=== PATIENT | male | born 1940 | race Caucasian/White ===

== ENCOUNTER 2019-02-23 07:29 | Inpatient (IN) ==
[2019-02-17 19:29] LABS: Appearance,Urine CLEAR; Bacteria,Urine 0 /hpf (0); Bilirubin,Urine NEG (NEG); Color,Urine YELLOW; Culture Indicated,Urine YES; Glucose,Urine (UA) NEGATIVE (NEG); Ketones,Urine NEG (NEG); Leukocyte Esterase,Urine 500 /uL (NEG); Nitrate,Urine NEG (NEG); Protein,Urine NEG (NEG); Specific Gravity,Urine 1.016 (1.000-1.035); Urine Blood 0.03 mg/dL (<0.03); Urine RBC 5 /hpf (0-1); Urine Squamous Epithelial Cell 1 /hpf (0-4); Urine WBC 52 /hpf (0-4); Urobilinogen,Urine NEG (NEG)
[2019-02-17 20:59] LABS: Blood Urea Nitrogen 32 mg/dl (8-23); Calcium 9.3 mg/dl (8.6-10.4); Carbon Dioxide 31 mmol/L (22-30); Chloride 101 mmol/L (96-108); Glomerular Filtration Rate 38; Glucose 130 mg/dL (70-105)
[2019-02-17 21:11] LABS: Basophils # (Auto) 0.1 K/mcL (0.0-0.3); Basophils % (Auto) 0.5 % (0.0-2.0); Eosinophils # (Auto) 0.5 K/mcL (0.0-0.7); Eosinophils % (Auto) 5.2 % (0.0-7.0); Granulocytes % (Auto) 54.1 % (38.0-78.0); Hematocrit 42.1 % (41.0-55.0); Hemoglobin 13.6 g/dL (13.5-16.5); Lymphocytes # (Auto) 2.9 K/mcL (1.5-4.8); Lymphocytes % (Auto) 30.1 % (15.5-49.0); Mean Cell Volume 99.4 fL (80.0-100.0); Mean Corpuscular HGB Conc 32.2 g/dL (31.0-36.0); Mean Platelet Volume 7.8 fL (7.4-10.4); Monocytes % (Auto) 10.1 % (1.0-12.0); Platelet Count 232 K/mcL (140-440); RBC 4.24 M/mcL (4.50-5.90); Red Cell Distribution Width 14.2 % (11.5-14.5); WBC 9.7 K/mcL (4.5-11.0)
[2019-02-20 17:33] LABS: Hemoglobin A1C 6.9 % HGB (4.0-6.0)
[~2019-02-23 07:29] MED LIST: 0.9 % SODIUM CHLORIDE 9 ML, KETOROLAC 30 MG, ROPIVACAINE HCL/PF 49.5 ML, EPINEPHrine 0.... IJ SCH; CELECOXIB 200 MG CAPSULE PO SCH; IPRATROPIUM/ALBUTEROL 3 ML AMPUL.NEB NEB PRN; PREGABALIN 75 MG CAPSULE PO SCH; SCOPOLAMINE 1 PATCH PATCH TOPICAL PRN; ceFAZolin 2 GM in DEXTROSE 5% IN WATER 50 ML IV SCH; oxyCODONE 10 MG TAB.ER.12H PO SCH
[2019-02-23] MEDS ORDERED: CIPROFLOXACIN 400 MG/200 ML BAG IV ONE (09:48)
[2019-02-23] MEDS ORDERED: ONDANSETRON 4 MG/2 ML VIAL IV ONE (10:36)
[2019-02-23] MEDS ORDERED: fentaNYL 250 MCG/5 ML VIAL IV ONE (10:36)
[2019-02-23] MEDS ORDERED: LIDOCAINE HCL/PF 100 MG/5 ML SYRINGE IV ONE (10:36)
[2019-02-23] MEDS ORDERED: ROPIVACAINE HCL/PF 20 ML VIAL IJ ONE (10:36)
[2019-02-23] MEDS ORDERED: PROPOFOL 200 MG/20 ML VIAL IV ONE (10:36)
[2019-02-23] MEDS ORDERED: GLYCOPYRROLATE 0.2 MG/ML VIAL IV ONE (10:36)
[2019-02-23] MEDS ORDERED: PHENYLEPHRINE 10 MG/ML VIAL IV ONE (10:36)
[2019-02-23] MEDS ORDERED: DEXAMETHASONE 10 MG/ML VIAL IV ONE (10:36)
[2019-02-23] MEDS ORDERED: FLUMAZENIL 0.1 MG/ML ML IV PRN (11:57)
[2019-02-23] MEDS ORDERED: diphenhydrAMINE 50 MG/ML VIAL IV PRN (11:57)
[2019-02-23] MEDS ORDERED: HYDROmorphone 2 MG/ML VIAL IV PRN (11:57)
[2019-02-23] MEDS ORDERED: ATROPINE SULFATE 0.4 MG/ML VIAL IV PRN (11:57)
[2019-02-23] MEDS ORDERED: METHOCARBAMOL 1,000 MG/10 ML VIAL IV PRN ×2 (11:57→13:51)
[2019-02-23] MEDS ORDERED: IPRATROPIUM/ALBUTEROL 3 ML AMPUL.NEB NEB PRN (11:57)
[2019-02-23] MEDS ORDERED: METOPROLOL TARTRATE 5 MG/5 ML VIAL IV PRN (11:57)
[2019-02-23] MEDS ORDERED: ACETAMINOPHEN 1,000 MG/100 ML BOTTLE IV ONE (11:57)
[2019-02-23] MEDS ORDERED: NALOXONE HCL 0.4 MG/ML VIAL IV PRN (11:57)
[2019-02-23] MEDS ORDERED: ONDANSETRON 4 MG/2 ML VIAL IV PRN ×2 (11:57→13:35)
[2019-02-23] MEDS ORDERED: PROMETHAZINE 25 MG/ML VIAL IV PRN (11:57)
[2019-02-23] MEDS ORDERED: ePHEDrine 50 MG/ML AMPUL IV PRN (11:57)
[2019-02-23] MEDS ORDERED: LACTATED RINGERS 1,000 ML IV SCH (12:00)
[2019-02-23] MEDS ORDERED: VANCOMYCIN 1 GM VIAL TOPICAL SCH (13:00)
[2019-02-23] MEDS ORDERED: VANCOMYCIN 1 GM VIAL TOPICAL ONE (13:15)
[2019-02-23] MEDS ORDERED: GUM MASTIC/STORAX/MSAL/ALCOHOL 1 DOSE DROPERETTE TOPICAL ONE (13:24)
--- NOTE | 2019-02-23 13:33 | Brief Operative Note ---
Date of procedure: 02/23/19 Pre-op diagnosis: Right knee OA Post-op diagnosis: same Procedure: Right nikolas total knee arthroplasty Grafts/Implants: Yes (Triatholon CR TKA with size 5 femur with universal baseplate size 5, ) Anesthesia: GETA, spinal Findings: knee OA with patella baha Complications: none Surgeon: Manny Rodriguez Therapeutic Radiologist: Bryon Mas Estimated blood loss (cc): 50 Tourniquet Time (Minutes): 105 Specimens Removed/Pathology: none sent Condition: stable Disposition: PACU
[2019-02-23] MEDS ORDERED: POLYETHYLENE GLYCOL 3350 17 GM PACKET PO PRN (13:35)
[2019-02-23] MEDS ORDERED: FLEETS ADULT ENEMA PR PRN (13:35)
[2019-02-23] MEDS ORDERED: TRANEXAMIC ACID 1,000 MG/10 ML VIAL IV ONE (13:35)
[2019-02-23] MEDS ORDERED: MAGNESIUM HYDROXIDE 30 ML ORAL.SUSP PO PRN (13:35)
[2019-02-23] MEDS ORDERED: BISACODYL 10 MG SUPP.RECT PR PRN (13:35)
[2019-02-23] MEDS ORDERED: BENZOCAINE/MENTHOL 1 LOZENGE PO PRN (13:35)
[2019-02-23] MEDS ORDERED: METHOCARBAMOL 750 MG TABLET PO PRN (13:41)
[2019-02-23] MEDS ORDERED: ACETAMINOPHEN 1,000 MG/100 ML BOTTLE IV PRN (13:56)
[2019-02-23] MEDS: fentaNYL 100 MCG/2 ML VIAL IV PRN ×2 (13:58→14:20)
--- NOTE | 2019-02-23 14:10 | XRay Report ---
CLINICAL INFORMATION: Post-Op Total Knee COMPARISON: None. FINDINGS: Total knee prostheses is anatomically aligned. Bayoneting deformity from a malunified old mid femoral diaphysis fracture is partially included on the film. No other osseous abnormality. Soft tissue swelling seen as expected IMPRESSION: Negative Interpreted and Authenticated by: José Miguel Park 02/23/19
[2019-02-23] MEDS ORDERED: ACETAMINOPHEN 500 MG TABLET PO PRN (14:54)
--- NOTE | 2019-02-23 14:56 | Internal Medicine Consult Note ---
Medical - CN: HPI - Data of Consult Primary Care Provider: Jose Maria Gavin - Consult Narrative Reason for consult: Management of pre-existing medical condition including diabetes History of present illness: Mr. Corrigan is a 78 year old M with known history of diabetes type 2/hyperlipidemia/hypertension, thyroidism who was admitted for right knee osteoa rthritis and underwent right total knee arthroplasty by Dr. Berman orthopedics today. Postoperatively hospitalist service was consulted for management of diabetes and pre-existing medical issues. Patient underwent surgery uneventfully. At the time of evaluation patient is alert currently on room air. Postop stable hemodynamics with blood pressure 131/59. Endorses to minimal postoperative pain . No shortness of breath. Patient denies any prior hospitalization or history of CAD, he does endorse a history of chronic disease stage III managed by nephrology with a baseline creatinine of 1.7. He follows up with Dr. Ramirez for his urinary retention/prostate. His primary care physician Dr. Jose Maria Francisco. He has had fairly optimal blood sugar control with an A1c at goal. Is currently on a CC diet. He denies recent weight loss/headache, chest pain cough, weakness. He lives at [place] with his Ju. He is fairly independent at baseline. Review of systems A 10 point review system was performed and is negative except was discussed above CC: Manny Rodriguez MD Medical - CN: [facility] Medical history: CKD (chronic kidney disease) stage 3, GFR 30-59 ml/min (Chronic) Low-grade proteinuria is present. This could either be the aftermath of prolonged obstructive uropathy or diabetic nephropathy in either case his blood pressure is well controlled his diabetes is well controlled and he knows to avoid nonsteroidals. 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) Chronic kidney disease, stage III (moderate) (Chronic) Chronic obstructive pulmonary disease (Chronic) Diabetes mellitus type II, uncontrolled (Chronic) Diverticulitis of ileum (Chronic) Dysphagia (Chronic) Dysphagia, oropharyngeal phase (Chronic) Esophageal ring (Chronic) Fatigue (Chronic) Hernia, hiatal (Chronic) History of inguinal hernia (Chronic) Pain in hip (Chronic) Pain in left hip (Chronic) Pain in right hip (Chronic) Primary osteoarthritis of both hips (Chronic) Surgical History Hx of appendectomy (Chronic) Hx of inguinal hernia repair (Chronic) Family History Other Unknown family medical history Social History marital status: smoking status: Former smoker quit date: 04/07/04 pack-years: 50 alcohol intake frequency: holiday/special occasion only substance use type: does not use Medical - CN: Meds Home Medications Medication Instructions Recorded Confirmed Type blood sugar diagnostic 1 each .ROUTE .MEDSUPPLY 09/18/15 02/23/19 History levothyroxine 75 mcg tablet 75 mcg PO QAMAC 09/18/15 02/23/19 History nateglinide 60 mg tablet 120 mg PO DAILY 09/18/15 02/23/19 History acetaminophen 500 mg tablet 1,000 mg PO BIDP PRN tab 04/16/16 02/23/19 History aspirin 81 mg tablet,delayed 81 mg PO QDAY tab 11/02/18 02/17/19 History release atorvastatin 20 mg tablet 20 mg PO HS 11/02/18 02/23/19 History esomeprazole magnesium 40 each PO DAILYP PRN 11/02/18 02/23/19 History glucosamine HCl 1,500 mg tablet 1,500 mg PO QDAY 11/02/18 02/17/19 History metoprolol succinate 25 mg 25 mg PO QDAY 60 Days #60 tab 11/02/18 02/23/19 History tablet,extended release 24 hr Tamsulosin HCl [Flomax] 0.4 mg PO DAILY 01/27/19 02/23/19 History 16 japanese coude catheter-hydro 1 each .ROUTE .MEDSUPPLY 02/02/19 02/23/19 History 14'' speedicatheter latex 1 each .ROUTE .MEDSUPPLY 02/02/19 02/23/19 History Lisinopril [Zestril] 2.5 mg PO DAILY 02/17/19 02/23/19 History Allergies Allergy/AdvReac Type Severity Reaction Status Date / Time chlorhexidine Allergy Severe Rash Verified 02/17/19 16:41 meperidine [From Demerol] Allergy Intermediate Hives Verified 02/02/19 05:18 morphine Allergy Intermediate Hives Verified 12/30/18 13:09 Medical - CN: Exam - Constitutional Vitals: Temp Pulse Resp BP Pulse Ox 97.5 F 62 15 131/59 96 02/23/19 14:30 02/23/19 14:30 02/23/19 14:30 02/23/19 14:30 02/23/19 14:30 General appearance: no acute distress Exam: Alert and oriented Head normocephalic oral cavity dry Eye movement symmetrical No ear nose discharge Neck no lymph adenopathy S1-S2 regular rhythm ESM murmur Diminished breath sounds bases Abdomen soft nontender Postoperative dressing right lower extremity no lymphedema or cyanosis or clubbing Skin no suspicious lesion Psych alert cooperative neuro nonfocal Medical - CN: Result - Labs CBC & Chem 7: 02/17/19 16:46 02/17/19 16:46 Medical - CN: A/P (1) DM type 2 causing CKD stage 3 Status: Acute Assessment and plan: * Right total knee arthroplasty-postop day 1 managed by orthopedics * Postoperative care/pain management as per orthopedics Hospitalist consult for management of medical issues as below * DM type II-continue continue nateglinide/CC diet/sliding scale insulin/home medication * CKD stage III avoid nephrotoxins and monitor renal function * History of urinary retention managed by Dr. Ramirez as outpatient. Continue Flomax * Hypertension continue lisinopril/metoprolol. * Hyperlipidemia continue statin * Hypothyroidism continue thyroxine * GERD continue omeprazole * Full code * Prophylaxis as per orthopedics aspirin twice daily Recommendation * Avoid NSAIDs in light of chronic kidney disease * Continue prior home medications * Sliding scale insulin/CC diet * Aggressive PT OT * Discharge planning per orthopedics * Thank you for consult, please call with questions
[2019-02-23] MEDS: oxyCODONE HCL 5 MG TABLET PO PRN ×2 (15:08→21:29)
[2019-02-23] MEDS ORDERED: DEXTROSE 50% 50 ML VIAL IV PRN (15:19)
[2019-02-23] MEDS ORDERED: DEXTROSE 31 GM ORAL.SUSP PO PRN (15:19)
[2019-02-23 15:41] LABS: Hematocrit 38.8 % (41.0-55.0); Hemoglobin 12.5 g/dL (13.5-16.5); Mean Cell Volume 96.8 fL (80.0-100.0); Mean Corpuscular HGB Conc 32.2 g/dL (31.0-36.0); Mean Platelet Volume 7.9 fL (7.4-10.4); Platelet Count 203 K/mcL (140-440); RBC 4.01 M/mcL (4.50-5.90); Red Cell Distribution Width 13.6 % (11.5-14.5); WBC 9.1 K/mcL (4.5-11.0)
[2019-02-23 15:54] LABS: ALT/SGPT 7 U/l (0-40); AST/SGOT 13 U/l (0-37); Albumin 3.2 gm/dL (3.2-5.2); Albumin/Globulin Ratio 0.9 (1.0-2.3); Alkaline Phosphatase 65 U/L (39-117); Bilirubin,Direct < 0.2 mg/dL (0.0-0.3); Bilirubin,Total 0.2 mg/dL (0.0-1.0); Blood Urea Nitrogen 30 mg/dl (8-23); Calcium 8.5 mg/dl (8.6-10.4); Carbon Dioxide 25 mmol/L (22-30); Chloride 102 mmol/L (96-108); Globulin 3.4 gm/dL (2.2-3.7); Glomerular Filtration Rate 44; Glucose 182 mg/dL (70-105); Lactate Dehydrogenase 161 U/L (94-250); Phosphorous 3.4 mg/dL (2.7-4.5); Triglycerides 74 mg/dl (<150); Uric Acid 4.5 mg/dL (2.5-8.0)
[2019-02-23] MEDS: 0.9 % SODIUM CHLORIDE 10 ML SYRINGE IV SCH ×2 (16:53→22:22)
--- NOTE | 2019-02-23 16:56 | Operative Note ---
DATE OF OPERATION: 02/23/2019 PREOPERATIVE DIAGNOSIS: Right knee primary osteoarthritis. POSTOPERATIVE DIAGNOSIS: Right knee primary osteoarthritis. PROCEDURE PERFORMED: Right total Robert knee arthroplasty. SURGEON: Manny Rodriguez M.D. PRODUCE FIELD MERCHANDISER SURGEON: Nathan Hernandez M.D. A second physician was needed for safe and efficient completion of the entire case. There was no qualified PA available. ANESTHESIA: Spinal with general. Also had an adductor canal block. IV FLUIDS: 1400 mL lactated Ringer's. ESTIMATED BLOOD LOSS: Less than 50 mL. TOURNIQUET TIME: 1 hour 47 minutes at 250 mmHg. IMPLANTS: Triathlon CR total knee, size 5 femur, size 5 universal baseplate, 10 mm poly and a symmetrical size 36 patella. INTRAOPERATIVE COMPLICATIONS: None apparent. PATHOLOGY/LAB: None. INDICATION FOR PROCEDURE: The patient is a 78-year-old male who has been having right knee pain for quite some time now. He has been treated conservatively to include injections, activity modification, offloader brace and does use a cane for assistance given the degree of pain in his right knee for ambulation. He has several medical comorbidities to include well-controlled diabetes, chronic kidney disease as well as BPH requiring a Ortega catheter, and hypertension. I discussed the risks and benefits of the surgery, as well as provided handouts extensively discussing the risks and benefits of the surgery, as well as postoperative expectations and the rehab course. Given the degree of limitations with his current state, he does wish to proceed with surgery. DESCRIPTION OF PROCEDURE: The patient was met in the preoperative holding area where site was verified and marked with the patient's input. He was then taken back to the operating room where he underwent successful spinal anesthesia and general anesthesia. His left lower extremity had a sequential compression device in place. His right lower extremity was prepped and draped in the usual sterile fashion with Betadine secondary to CHLORHEXIDINE allergy. A surgical timeout was performed to verify patient identity, correct procedure being performed, and correct extremity being operated on. Everybody was in agreement. Esmarch was utilized to exsanguinate the extremity and tourniquet was inflated to 250 mmHg. He was placed in the leg positioner in approximately 35 to 40 degrees of knee flexion. I created a midline incision. I extended it to the medial aspect of the tibial tubercle. Skin was sharply incised. Hemostasis was obtained with the electrocautery device down to the peritenon over the patellar tendon as well as over the patella itself. At this point, medial and lateral flaps were created. The VMO insertion to the quad tendon was identified proximally. I created our medial capsulotomy, leaving a cuff of tissue on the patella. The superior border of the patella was marked with a marking pen prior to capsulotomy. Once this was completed, noted he had significant patella baja requiring a bit larger incision proximally and quad release proximally. The portion of the anterior fat pad was removed to improve our visualization. The lateral meniscus was incised. The ACL was released off the tibia as well as the medial meniscus was incised. The anterior horn and body were removed. I created our medial-sided release subperiosteally, however, did not extensively release the superficial MCL. Once this was complete, we placed our femoral and tibial pins for sterotactic rays for the Robert portion of the case. These were placed bicortical. However, they did not perez through the far cortex. Once this was complete, we placed our tibial reference pin and our femoral reference point. The knee was registered sequentially with the hip, ankle and points throughout the knee to their alloted increments. Once this was complete, our initial readings were taken. Osteophytes were removed. He had approximately a 19-20 degree knee flexion contracture and mild varus position of approximately 3-4 degrees. Our patella cut was completed with resecting to 12mm. Prior to making the cut, the patella thickness measured 25 mm in thickness. At this point, we placed a protector of the patella itself and had placed medial and lateral retractors along the joint. at 15 degrees knee extension we placed our spoons and stressed the medial and lateral compartment which the lateral side was 21 and medial side was 17. I did this also at 90 degrees of knee flexion which was more symmetric at approximately 19 mm both medially and laterally. This was a bit unexpected. He did have a midshaft femur fracture which did not appear to be in any varus or valgus malrotation. However, there was in the sagittal plane alignment issues. However, given this we did have to slightly internally rotated and anteriorize the femur to get our gaps to be balanced at 18 medially and 19 laterally. Through the axial cuts it did appear that the implant at the trochlea was well aligned with the natural alignment of the trochlea itself. Once this was complete, following the reference points and placed self-retaining retractors along the medial gutter to protect the MCL and lateral to protect the LCL, we made our bone cuts. The patellar tendon was protected throughout the case. Once this was complete, all bone debris was removed. We placed our tibial baseplate which was a size 5. This fit well, matched the posterior lateral condyle and rotated externally to the point where it was flush with the anterior medial tibial plateau. I pinned this in place and subsequently drilled and then punched for the keel. I exchanged this baseplate out for a trial baseplate. The femoral component trial was then placed and lateralized as much as possible and also fit well. Our insert was a 9 mm trial insert which was placed. At this point, the knee was brought out to full extension. He had approximately 6 degrees of flexion contracture. Also, I should note prior to placing our poly trial insert, we removed the posterior osteophytes. Trialed with approximately 6-7 degrees of flexion contracture and our gaps were nearly symmetrical with varus and valgus. It was slightly more loose medially than lateral. At this point, removed all trial implants. The knee was irrigated copiously with pulse lavage. We exposed our tibia both medial and laterally to protect and fully expose the peripheral portion and a posterior retractor to translocate the tibia anteriorly. The tibia was exposed, pulse lavaged and dried. CO2 was used to clear all the trabecular bone for better cement implantation. Cement was being mixed on the back table at this point, cementing the tibial universal base tray and subsequently the femoral side in the same fashion. We placed our 9 mm poly trial implant. At each step we removed the excess bone cement. The patella was cemented as well and clamped while the cement cured. While this hardened, I did soak the wound in a 0.035% Betadine solution as I could not use Irrisept. He has a CHLORHEXIDINE allergy. Once this was completed. THis was irrigated. Performed our local injection subperiosteum of the bone, as well as through the suprapatellar fat pad and along the incision. Once cement was hard, we removed the tibial trial. I placed local in the posterior capsule, avoiding the posterolateral capsule. We placed a 10 mm poly and brought that out to full extension, again approximately 5-6 degrees of flexion contracture. However, it was more stable with valgus and felt this was more appropriate for 10 mm poly. Thus the 10 mm poly was used and placed in standard fashion. Once this was complete, the patellar tracking was assessed. He did have slight lateral patellar tracking. Thus I performed a limited lateral release, which improved the overall tracking relatively well. At this point, again copiously irrigated the knee, assured all bony debris and cement debris was removed from the knee. I closed the capsulotomy with the knee in approximately 30 to 40 degrees of knee flexion, placing four interrupted 2-0 FiberWire about the patella itself and then over running the whole capsulotomy with a Stratafix. The inferior portion was closed with 0 Vicryl. Again, I did place a small amount of vancomycin powder in the subcutaneous tissue. The deep fat layer was closed with a 2-0 Vicryl, subcutaneous tissue with 3-0 Vicryl. On the inferior portion of the incision, I did close in a layered fashion with 2-0 Vicryl. I ran a 3-0 Monocryl and then placed jacquelyn and steris in a standard fashion. The leg was then cleaned and dried. Xeroform was placed along with fluffs, Webril, and Joey wrap. The patient awoke from anesthesia and was transferred to PACU in stable condition. POSTOPERATIVE PLAN: The patient will be admitted to the floor for postoperative recovery. SHALA:harshad Job ID: [id number] Doc ID: [id number] Manny FARIA
[2019-02-23 17:00] LABS: Band Neutrophils % 14 % (0-10); Lymphocytes % 7 % (15-49); Monocytes % (Manual) 6 % (1-12); Platelet Estimate NORMAL (NORMAL); RBC Morphology NORMAL (NORMAL); Segmented Neutrophils % 73 % (38-78)
[2019-02-23] MEDS: INSULIN LISPRO 1 UNIT/0.01 ML UNIT SQ SCH ×2 (17:19→22:22)
[2019-02-23] MEDS: LACTATED RINGERS 1,000 ML IV SCH (17:19)
[2019-02-23] MEDS: ceFAZolin 1 GM VIAL IV SCH (17:31)
[2019-02-23] MEDS ORDERED: KETOROLAC 15 MG/ML VIAL IV SCH (18:00)
[2019-02-23] MEDS ORDERED: TAMSULOSIN 0.4 MG CAPSULE PO SCH (21:00)
[2019-02-23] MEDS ORDERED: ATORVASTATIN 20 MG TABLET PO SCH ×2 (21:00)
[2019-02-23] MEDS ORDERED: SENNOSIDES 1 TABLET PO SCH (21:00)
[2019-02-23] MEDS: DOCUSATE SODIUM 100 MG CAPSULE PO SCH (21:30)
[2019-02-23] MEDS: GABAPENTIN 300 MG CAPSULE PO SCH (21:30)
[2019-02-23] MEDS: ASPIRIN 81 MG TAB.CHEW PO SCH (21:30)
[2019-02-24] MEDS: ceFAZolin 1 GM VIAL IV SCH (02:05)
[2019-02-24] MEDS: oxyCODONE HCL 5 MG TABLET PO PRN ×3 (02:05→11:42)
[2019-02-24] MEDS: LACTATED RINGERS 1,000 ML IV SCH (03:37)
[2019-02-24 05:59] LABS: Hematocrit 35.1 % (41.0-55.0); Hemoglobin 11.4 g/dL (13.5-16.5); Mean Cell Volume 96.9 fL (80.0-100.0); Mean Corpuscular HGB Conc 32.5 g/dL (31.0-36.0); Mean Platelet Volume 8.1 fL (7.4-10.4); Platelet Count 213 K/mcL (140-440); RBC 3.62 M/mcL (4.50-5.90); Red Cell Distribution Width 13.3 % (11.5-14.5); WBC 12.1 K/mcL (4.5-11.0)
[2019-02-24 06:43] LABS: ALT/SGPT 5 U/l (0-40); AST/SGOT 14 U/l (0-37); Albumin 3.2 gm/dL (3.2-5.2); Albumin/Globulin Ratio 1.1 (1.0-2.3); Alkaline Phosphatase 62 U/L (39-117); Bilirubin,Direct < 0.2 mg/dL (0.0-0.3); Bilirubin,Total 0.2 mg/dL (0.0-1.0); Blood Urea Nitrogen 35 mg/dl (8-23); Calcium 8.3 mg/dl (8.6-10.4); Carbon Dioxide 22 mmol/L (22-30); Chloride 97 mmol/L (96-108); Glucose 155 mg/dL (70-105); Lactate Dehydrogenase 173 U/L (94-250); Phosphorous 2.9 mg/dL (2.7-4.5); Triglycerides 37 mg/dl (<150); Uric Acid 5.7 mg/dL (2.5-8.0)
[2019-02-24 06:44] LABS: Glomerular Filtration Rate 33
[2019-02-24] MEDS: 0.9 % SODIUM CHLORIDE 10 ML SYRINGE IV SCH (06:49)
[2019-02-24 06:52] LABS: Band Neutrophils % 9 % (0-10); Lymphocytes % 12 % (15-49); Monocytes % (Manual) 5 % (1-12); Platelet Estimate NORMAL (NORMAL); RBC Morphology NORMAL (NORMAL); Segmented Neutrophils % 74 % (38-78)
--- NOTE | 2019-02-24 07:21 | Discharge Summary ---
Providers - Providers Patient information: Note initiated : 02/24/19 at 7:18 am Service Date, if different from initiated Date: [] Patient: Clinton Corrigan 78 y/o M admitted on 02/23/19 for Right Robotic Total Knee Arthroplasty. Chief Complaint: [] Date of admission: 02/23/19 Discharge date: 02/24/19 Attending physician: Manny Rodriguez Hospitalist- medical management Physical Therapy Primary care physician: Betito Francisco Hospitalization Hospital Course: 78 year old male admitted on day of surgery for ALFREDO total knee arthroplasty. He did well post operatively with pain being controlled on oral medications. He was able to work with physical therapy and mobilize safely. He was able to void back to baseline which does require self catherization twice daily. He was tolerating an oral diet. He was hemodynamically stable. Discharge diagnosis: Right knee primary arthritis Secondary discharge diagnosis: Chronic kidney disease DM II Hypertension BPH Reason for admission: Post operative recovery from Total Knee Arthroplasty Procedures: Right ALFREDO Total knee arthroplasty Complications: None apparent Exam - Exam Incision healing: Yes Incision draining: No Incision red: No Incision swollen: Yes (As expected post operatively) Incision inflamed: No Clean and dry: Yes Weight bearing status: full Range of motion: 0-90 degrees Ortho Discharge - TKA - Patient Instructions Diet: Consistent Carbohydrate Activity: activity as tolerated, weight bearing as tolerated Total Knee Protocol: For Total Knee: Start ROM LASHA with stationary bike or rocking chair. Work on gaining full extension of knee. Hip abductor strengthening and gait training instructions provided. Apply Cryocuff as instructed. Dressing Care: Other (Keep dressing on until your follow to the office. If the edges begin to peel after 7 days, OK to remove and place dry guaze until your follow up with orthopedics. The pin sites in the thigh and leg, change dressing if there is strikethrough.) Additional Instructions: Work on bending your knee at least to 90 degrees. Can sit in a rocking chair or regular chair to get this motion. Work on tightening and relaxing your thigh muscles. Work on making your knee straight. Move your ankle up and down. Move your ankle in circles. - Follow Up Plan Disposition: Home, Self-Care Prognosis: Good Rehab Potential: Good I certify that the patient requires SNF services: No Overall status at discharge: patient is progressing back to baseline - Orders For Discharge Prescriptions: Docusate Sodium [Colace] 100 mg PO BID #60 cap Prescription Printed Gabapentin [Neurontin] 300 mg PO BID #60 cap Prescription Printed Methocarbamol [Robaxin] 750 mg IV ONCE PRN #20 vial PRN Reason: Muscle Spasm Prescription Printed oxyCODONE HCL [Roxicodone] 5 - 10 mg PO Q4HP PRN #60 tab PRN Reason: Pain Prescription Printed Pending Studies Resuscitation Status Full Code Diet Consistent Carbohydrate Diet Start FriFeb 23 1400 Aspirin (Aspirin) 81 mg PO BID [facility] Last Admin: 02/23/19 21:30 Dose: 81 mg Documented by: MISA Atorvastatin Calcium (Lipitor) 20 mg PO HS [facility] Last Admin: 02/23/19 22:22 Dose: Not Given Documented by: MISA Diagnostic Test (Pha) (Accu-Chek) 1 each FS ACHS [facility] Last Admin: 02/23/19 22:21 Dose: 1 each Documented by: Admin: 02/23/19 17:18 Dose: 1 each Documented by: CARMELO Docusate Sodium (Colace) 100 mg PO BID [facility] Last Admin: 02/23/19 21:30 Dose: 100 mg Documented by: MISA Gabapentin (Neurontin) 300 mg PO BID [facility] Last Admin: 02/23/19 21:30 Dose: 300 mg Documented by: MISA Lactated Ringer's (Lactated Ringers) 1,000 mls @ 75 mls/hr IV .[id number] [facility] Last Infusion: 02/24/19 03:38 Dose: 75 mls/hr Documented by: Admin: 02/24/19 03:37 Dose: Not Given Documented by: Admin: 02/23/19 17:19 Dose: 75 mls/hr Documented by: CARMELO Acetaminophen (Ofirmev) 1,000 mg in 100 mls @ 200 mls/hr IV Q8HP PRN; Protocol PRN Reason: PAIN/FEVER > 101 Last Infusion: 02/24/19 04:05 Dose: 200 mls/hr Documented by: Admin: 02/24/19 03:34 Dose: 200 mls/hr Documented by: MARIAMA Insulin Human Lispro (Humalog) [address] [facility]; Protocol Last Admin: 02/23/19 22:22 Dose: Not Given Documented by: Admin: 02/23/19 17:19 Dose: Not Given Documented by: [email or web address] Methocarbamol (Robaxin) 750 mg IV ONCE PRN PRN Reason: Muscle Spasm Stop: 02/25/19 13:57 Last Admin: 02/23/19 14:16 Dose: 750 mg Documented by: BARYDON Methocarbamol (Robaxin) 750 mg PO Q6HP PRN PRN Reason: Muscle Spasm Last Admin: 02/24/19 03:10 Dose: 750 mg Documented by: MARIAMA Oxycodone HCl (Roxicodone) 5 - 10 mg PO Q4HP PRN; Protocol PRN Reason: Pain Last Admin: 02/24/19 06:38 Dose: 10 mg Documented by: Admin: 02/24/19 02:05 Dose: 10 mg Documented by: Admin: 02/23/19 21:29 Dose: 10 mg Documented by: Admin: 02/23/19 15:08 Dose: 10 mg Documented by: JAYANT Jean (Senokot) 2 tab PO [facility] Last Admin: 02/23/19 21:30 Dose: 2 tab Documented by: MISA Sodium Chloride (Saline Flush) 10 ml IV Q8 [facility] Last Admin: 02/24/19 06:49 Dose: Not Given Documented by: Admin: 02/23/19 22:22 Dose: Not Given Documented by: Admin: 02/23/19 16:53 Dose: Not Given Documented by: CARMELO Tamsulosin HCl (Flomax) 0.4 mg PO [facility] Last Admin: 02/23/19 22:21 Dose: Not Given Documented by: MISA Throat Lozenges (Cepacol) 1 lozenge PO PRN PRN PRN Reason: Sore Throat Last Admin: 02/23/19 22:19 Dose: 1 lozenge Documented by: MISA Shift Summary 02/24/19 04:34 Shift Summary by Verónica Varela Patient is awake and alert, oriented times four, up to ambulate in the halls at 0300 once 220 feet with a FWW/gait belt and SBA. He was medicated with Robaxin and Ofirmev after Roxicodone did not alleviate his 6/10 knee pain and his pain became 0/10. Joey wrap CDI, cryocuff used during intervals this evening, AV boots in place. IV saline locked to his right wrist, tolerating PO well with no nausea. The patient has his own self catheterization supplies present and the Ortega he has insitu will be discontinued at 0600, his plan is to discharge to home this morning. Initialized on 02/24/19 04:34 - END OF NOTE
[2019-02-24] MEDS: INSULIN LISPRO 1 UNIT/0.01 ML UNIT SQ SCH (07:22)
[2019-02-24] MEDS ORDERED: LEVOTHYROXINE 75 MCG TABLET PO SCH ×2 (07:30)
[2019-02-24] MEDS ORDERED: PANTOPRAZOLE 40 MG TABLET PO PRN (07:30)
[2019-02-24] MEDS: ASPIRIN 81 MG TAB.CHEW PO SCH (08:08)
[2019-02-24] MEDS: DOCUSATE SODIUM 100 MG CAPSULE PO SCH (08:08)
[2019-02-24] MEDS: GABAPENTIN 300 MG CAPSULE PO SCH (08:08)
[2019-02-24] MEDS ORDERED: MAGNESIUM SULFATE 2 GM/50 ML BAG IV ONE (08:51)
[2019-02-24] MEDS ORDERED: TAMSULOSIN 0.4 MG CAPSULE PO SCH (09:00)
[2019-02-24] MEDS ORDERED: METOPROLOL SUCCINATE 25 MG TAB.XL.24H PO SCH ×2 (09:00)
[2019-02-24] MEDS ORDERED: LISINOPRIL 5 MG TABLET PO SCH (09:00)
[2019-02-24] MEDS ORDERED: LISINOPRIL 2.5 MG TABLET PO SCH (09:00)
[2019-02-24] MEDS ORDERED: NATEGLINIDE 120 MG PO SCH (09:00)
== END 2019-02-24 12:15 | disposition home or self-care (01) | DRG 470 ==
LOC: MEDSUR 07:29
PROVIDERS: ADMIT Orthopaedic Surgery; ATTEND Orthopaedic Surgery